=== PATIENT | male | born 1965 | race Two or more races ===

== ENCOUNTER 2018-09-17 14:23 | Emergency (ER) | payer SELFPAY ==
[~2018-09-17] VITALS: Ht 165.1 cm; Wt 86.2 kg
[2018-09-17 15:05] VITALS: BP 139/73
[2018-09-17] MEDS ORDERED: diphenhdrAMINE HCL 50 MG/1 ML VL IM ONE (15:30)
== END 2018-09-17 16:09 | disposition home or self-care (01) ==
LOC: ER 14:23
DX: F41.1 Generalized anxiety disorder (principal); I10 Essential (primary) hypertension
CPT/HCPCS: 96372; 99284; J1200